=== PATIENT | male | born 2000 | race Caucasian/White ===

== ENCOUNTER 2019-02-06 17:22 | Emergency (ER) | payer BC, OTHER ==
--- NOTE | 2019-02-06 19:21 | ED ---
Head Injury - HPI Summary HPI Summary: patient complains of head injury yesterday during soccer game. Patient was elbowed in the left cheondoism with positive loss of consciousness, nausea, blurry vision at the time. Patient complains of persistent headache subsequently. Patient was evaluated by stroke sports doctor today who wanted CT of the face to rule out fracture. Patient denies active change, N/V, altered mental status, seizure, amnesia, any other pain, injury or symptoms. Medical history is none. - History Of Current Complaint Chief Complaint: EDHeadInjury Stated Complaint: HEAD INJURY PER PT Time Seen by Provider: 02/06/19 19:08 Hx Obtained From: Patient, Family/Curriculum Assistant Mechanism Of Injury: Blunt Trauma Onset/Duration: Started Days Ago Onset of Pain: Immediate Severity Currently: Mild Severity Initially: Mild Pain Intensity: 5 Pain Scale Used: 0-10 Numeric Location of Head Injury: Temporal Character: Throbbing Associated Signs And Symptoms: LOC (Time In Secs./Mins/Hrs) - Allergies/Home Medications Allergies/Adverse Reactions: Allergies Allergy/AdvReac Type Severity Reaction Status Date / Time No Known Allergies Allergy Verified 02/06/19 17:32 Home Medications: Home Medications Adapalene 0.3 % TRANSDERM DAILY 02/06/19 [History Confirmed 02/06/19] PMH/Surg Hx/FS Hx/Imm Hx Endocrine/Hematology History: Denies: Hx Anticoagulant Therapy Cardiovascular History: Denies: Hx Pacemaker/ICD History: Denies: Hx Dialysis Sensory History: Denies: Hx Eye Prosthesis Opthamlomology History: Denies: Hx Legally Blind EENT History: Denies: Hx Deafness Neurological History: Denies: Hx CVA Infectious Disease History: No Infectious Disease History: Denies: Traveled Outside the [place] in Last 30 Days - Family History Known Family History: Positive: Non-Contributory - Social History Alcohol Use: None Substance Use Type: Reports: None Smoking Status (MU): Never Smoked Tobacco Review of Systems Constitutional: Negative Positive: Blurred Vision ENT: Negative Cardiovascular: Negative Respiratory: Negative Gastrointestinal: Negative Genitourinary: Negative Musculoskeletal: Negative Skin: Negative Positive: Headache Psychological: Normal All Other Systems Reviewed And Are Negative: Yes Physical Exam - Summary Physical Exam Summary: Neuro exam normal. No ecchymosis, erythema, deformity, swelling noted to face, mouth, head. Full range of motion of jaw and neck. Triage Information Reviewed: Yes Vital Signs On Initial Exam: Initial Vitals Temp Pulse Resp BP Pulse Ox 98.8 F 55 14 128/69 100 02/06/19 17:30 02/06/19 17:30 02/06/19 17:30 02/06/19 17:30 02/06/19 17:30 Vital Signs Reviewed: Yes Appearance: Positive: Well-Appearing Skin: Positive: Warm Head/Face: Positive: Normal Head/Face Inspection Eyes: Positive: Normal ENT: Positive: Normal ENT inspection Dental: Negative: Dental Fracture @, Bleeding Neck: Positive: Supple Respiratory/Lung Sounds: Positive: Clear to Auscultation Cardiovascular: Positive: Normal Abdomen Description: Positive: Nontender Musculoskeletal: Positive: Normal Neurological: Positive: Normal Psychiatric: Positive: Normal AVPU Assessment: Alert - [place] Coma Scale Best Eye Response: 4 - Spontaneous Best Motor Response: 6 - Obeys Commands Best Verbal Response: 5 - Oriented Coma Scale Total: 15 Procedures - Sedation Patient Received Moderate/Deep Sedation with Procedure: No Diagnostics - Vital Signs Vital Signs Temp Pulse Resp BP Pulse Ox 02/06/19 17:30 98.8 F 55 14 128/69 100 - Laboratory Lab Statement: Any lab studies that have been ordered have been reviewed, and results considered in the medical decision making process. Head Injury Course/Dx Course Of Treatment: patient complains of head injury yesterday during soccer game. Patient was elbowed in the left cheondoism with positive loss of consciousness, nausea, blurry vision at the time. Patient complains of persistent headache subsequently. Patient was evaluated by stroke sports doctor today who wanted CT of the face to rule out fracture. Patient denies active change, N/V, altered mental status, seizure, amnesia, any other pain, injury or symptoms. Medical history is none. Vital signs within normal limits. CT maxillofacial negative for fracture. Likely concussion - Diagnoses Provider Diagnoses: Facial trauma, Concussion Discharge ED - Sign-Out/Discharge Documenting (check all that apply): Patient Departure - Discharge Plan Condition: Stable Disposition: HOME Patient Education Materials: Concussion (ED) Referrals: No Primary Care Phys,NOPCP [Primary Care Provider] - Additional Instructions: Concussion symptoms may come and go over the next couple weeks. Symptoms can be triggered by bright lights, phone, TV, exertion. Avoid any contact sports where there is risk of repeat head injury until cleared by primary care. Return to the ED for any worsening symptoms. - Billing Disposition and Condition Condition: STABLE Disposition: Home
[2019-02-06 20:47] VITALS: BP 99/61
== END 2019-02-06 20:46 | disposition home or self-care (01) ==
LOC: ED 17:22
DX: S09.93XA Unspecified injury of face, initial encounter (principal); S06.0X1A Concussion with loss of consciousness of 30 minutes or less, initial encounter; W50.0XXA Accidental hit or strike by another person, initial encounter; Y93.66 Activity, soccer; Y92.322 Soccer field as the place of occurrence of the external cause; J32.9 Chronic sinusitis, unspecified
CPT/HCPCS: 70486; 99282